=== PATIENT | male | born 1995 | race Caucasian/White ===

== ENCOUNTER 2021-01-13 15:14 | Emergency (ER) | payer SELFPAY ==
--- NOTE | 2021-01-13 16:31 | EDM.PDOC ---
ED HPI GENERAL MEDICAL PROBLEM - General Chief Complaint: Laceration Stated Complaint: LACERATION TO LEG Time Seen by Provider: 01/13/21 15:24 Source of Information: Reports: Patient History Limitations: Reports: No Limitations - History of Present Illness INITIAL COMMENTS - FREE TEXT/NARRATIVE: HISTORY AND PHYSICAL: History of present illness: The patient is a 25-year-old male who presents to the emergency department with a laceration on his left thigh which he received from his 4-1/2 inch vamsi metal or wood blocker while working in his garage prior to arrival. The patient did not do anything to cleanse or treat the wound prior to arrival. The patient states his tetanus has been over 5 years. Patient denies any fever, chills, headache, change in vision, syncope or near syncope. Denies any chest pain, back pain, shortness of breath or cough. Denies any abdominal pain, nausea, vomiting, diarrhea, constipation or dysuria. Has not noted any blood in urine or stool. Patient has been eating and drinking appropriately. Review of systems: As per history of present illness and below otherwise all systems reviewed and negative. Past medical history: As per history of present illness and as reviewed below otherwise noncontributory. Surgical history: As per history of present illness and as reviewed below otherwise noncontributory. Social history: See social history for further information Family history: As per history of present illness and as reviewed below otherwise noncontributory. Physical exam: General: Well developed and well nourished. Alert and orientated x 3. Nontoxic in appearance and in no acute distress. Vital signs are stable and have been reviewed by me. Nursing notes were reviewed. HEENT: Atraumatic, normocephalic, pupils equal and reactive bilaterally, negative for conjunctival pallor or scleral icterus, mucous membranes moist, TMs normal bilaterally, throat clear, neck supple, nontender, trachea midline. No drooling or trismus noted. No meningeal signs. No hot potato voice noted. Lungs: Clear to auscultation bilaterally. No wheezes, rales, or rhonchi. Chest nontender. Normal work of breathing, no accessory muscles used. Heart: S1S2, regular rate and rhythm without overt murmur, gallops, or rubs. No JVD. No peripheral edema Abdomen: Soft, nondistended, nontender. Normoactive bowel sounds. Negative for masses or costovertebral tenderness. Skin: 6 cm gaping laceration right left mid thigh. Inner fascia lacerated with partial muscle noted. Station intact. No bleeding. Warm, dry. No lesions or rashes noted. Hematologic: No petechiae or purpra. Mucosa appropriate color and normal nail bed color and refill. Extremities: Left extremity full range of motion and full sensation moves. Left extremity neurologically intact. All extremities per self without difficulty or deficits, negative for cords or calf pain. Neurovascular unremarkable. Neuro: Awake, alert, oriented. Cranial nerves II through XII unremarkable. Cerebellum unremarkable. Motor and sensory unremarkable throughout. Exam nonfocal. Psychiatric: Mood and affect are appropriate. Normal thought process. Answering questions appropriately. Notes: *This patient was seen and evaluated during the 2019 SARS-CoV-2 novel coronavirus pandemic period. Community viral transmission is ongoing at time of this encounter and the emergency department is operating under pandemic response procedures. Dr. Alford assaulted on treatment. As stated above the patient is a 25-year-old who lacerated his left thigh with a metal or wood blocker. The laceration involves the fascia surrounding the muscle and there is a partial muscle visualized. The patient has full mobility of his left extremity. The left extremities are logically intact. The patient was offered pain control and declined. Please see procedure note. The patient tolerated well. The patient declined a work note as he does not work until next . The patient was educated on suture care and the need to have the sutures removed in 7 to 10 days. I have talked with the patient about today's findings, in addition to providing specific details for plan of care. Reassessment at the time of disposition demonstrates that the patient is in no acute distress. The patient is stable for discharge, counseling was provided and we discussed in great detail signs and symptoms that would prompt them to return to the Emergency Department. Medication, follow up and supportive care measures were reviewed and discussed. Voices understanding and is agreeable to plan of care. Denies any further questions or concerns at this time Therapeutics: Lidocaine 1% Impression: Left thigh laceration Plan: 1. You were evaluated today on an emergent basis. Your left thigh laceration was evaluated and approximated with 6 inner sutures and 12 exterior sutures. Keep the area clean and dry. Continue to monitor for signs of infection. Sutures to be removed in 7-10 days. Once your wound is completely healed you can use sunscreen on a daily basis to minimize the effects of scarring. 2. Tylenol and/or ibuprofen as needed for pain management. 3. Please follow-up with your primary care provider in the next 1-2 days. Return to the ED as needed and as discussed. Definitive disposition and diagnosis as appropriate pending reevaluation and review of above. left thigh Pain Score (Numeric/FACES): 5 - Related Data Allergies Allergy/AdvReac Type Severity Reaction Status Date / Time No Known Allergies Allergy Verified 01/13/21 15:18 Home Meds: Home Meds . [No Known Home Meds] 01/13/21 [History] Past Medical History - Past Health History Medical/Surgical History: Denies Medical/Surgical History - Infectious Disease History Infectious Disease History: Reports: Chicken Pox Social & Family History - Family History Family Medical History: No Pertinent Family History - Tobacco Use Tobacco Use Status *Q: Former Tobacco User Used Tobacco, but Quit: Yes Month/Year Tobacco Last Used: 2015 - Caffeine Use Caffeine Use: Reports: Coffee - Recreational Drug Use Recreational Drug Use: No ED ROS GENERAL - Review of Systems Review Of Systems: Comprehensive ROS is negative, except as noted in HPI. ED EXAM, SKIN/RASH Exam: See Below (See dictation) ED SKIN PROCEDURES - Laceration/Wound Repair Left Mid-Anterior Thigh Appearance: Subcutaneous, Muscle, Clean Distal NVT: Neuro & Vascular Intact, No Tendon Injury Anesthetic Type: Local Local Anesthesia - Lidocaine (Xylocaine): 1% Plain Local Anesthetic Volume: Other (10) Skin Prep: Chlorhexidine (Hibiciens) Saline Irrigation (cc's): 200 Exploration/Debridement/Repair: Wound Explored, In a Bloodless Field, No Foreign Material Found Closed with: Sutures Lac/Wound length In cm: 6 Suture Size: 3-0 # of Sutures: 12 Suture Type: Prolene # of Sutures: 6 Suture Size: 3-0 # of Sutures: 6 Repaired with: Other (Chromic) Sterile Dressing Applied: Nurse Tetanus Status Addressed: Yes Complications: No Course - Vital Signs Last Recorded V/S: Last Vital Signs Temp 97.4 F 01/13/21 15:18 Pulse 60 01/13/21 15:18 Resp 17 01/13/21 15:18 BP 118/76 01/13/21 15:18 Pulse Ox 100 01/13/21 15:18 - Orders/Labs/Meds Meds: Medications Discontinued Medications Generic Name Dose Route Start Last Admin Trade Name Rodolfo PRN Reason Stop Dose Admin Lidocaine HCl 15 ml 01/13/21 15:28 01/13/21 15:35 Lidocaine 1% 5 Ml Sdv INJECT 01/13/21 15:29 15 ml ONETIME ONE Administration Departure - Departure Time of Disposition: 16:30 Disposition: Home, Self-Care 01 Condition: Good Clinical Impression: Laceration of thigh, left Qualifiers: Encounter type: initial encounter Qualified Code(s): S71.112A - Laceration without foreign body, left thigh, initial encounter - Discharge Information *PRESCRIPTION DRUG MONITORING PROGRAM REVIEWED*: Not Applicable *COPY OF PRESCRIPTION DRUG MONITORING REPORT IN PATIENT CHRISTA: Not Applicable Instructions: Laceration Care, Adult Referrals: PCP,None [Primary Care Provider] - Forms: ED Department Discharge Additional Instructions: The following information is given to patients seen in the emergency department who are being discharged to home. This information is to outline your options for follow-up care. We provide all patients seen in our emergency department with a follow-up referral. The need for follow-up, as well as the timing and circumstances, are variable depending upon the specifics of your emergency department visit. If you don't have a primary care physician on staff, we will provide you with a referral. We always advise you to contact your personal physician following an emergency department visit to inform them of the circumstance of the visit and for follow-up with them and/or the need for any referrals to a consulting specialist. The emergency department will also refer you to a specialist when appropriate. This referral assures that you have the opportunity for follow-up care with a specialist. All of these measure are taken in an effort to provide you with o ptimal care, which includes your follow-up. Under all circumstances we always encourage you to contact your private physician who remains a resource for coordinating your care. When calling for follow-up care, please make the office aware that this follow-up is from your recent emergency room visit. If for any reason you are refused follow-up, please contact the [facility] Emergency Department at and asked to speak to the emergency department charge nurse. Kirby Germain [facility] - [facility] [address] [place] [id number] [facility] [address] [place] [address] Plan: 1. You were evaluated today on an emergent basis. Your left thigh laceration was evaluated and approximated with 6 inner sutures and 12 exterior sutures. Keep the area clean and dry. Continue to monitor for signs of infection. Sutures to be removed in 7-10 days. Once your wound is completely healed you can use sunscreen on a daily basis to minimize the effects of scarring. 2. Tylenol and/or ibuprofen as needed for pain management. 3. Please follow-up with your primary care provider in the next 1-2 days. Return to the ED as needed and as discussed. Sepsis Event Note (ED) - Focused Exam Vital Signs: Vital Signs Temp Pulse Resp BP Pulse Ox 01/13/21 15:18 97.4 F 60 17 118/76 100
== END 2021-01-13 17:01 | disposition home or self-care (01) ==
LOC: MW.ED 15:14
DX: S71.112A Laceration without foreign body, left thigh, initial encounter (principal); Z87.891 Personal history of nicotine dependence; W26.8XXA Contact with other sharp object(s), not elsewhere classified, initial encounter; Y92.59 Other trade areas as the place of occurrence of the external cause
CPT/HCPCS: 12032; 99282-25

== ENCOUNTER 2023-10-24 08:44 | Emergency (ER) | payer SELFPAY | END 2023-10-24 10:00 | disposition home or self-care (01) | LOC: MW.ED 08:44 | DX: S62.614A Displaced fracture of proximal phalanx of right ring finger, initial encounter for closed fracture (principal); V00.131A Fall from skateboard, initial encounter; Y93.51 Activity, roller skating (inline) and skateboarding | CPT/HCPCS: 73140-26-F8; 73140-F8; 99283 ==